=== PATIENT | male | born 1960 | race Caucasian/White ===

== ENCOUNTER 2017-04-20 14:09 | Emergency (ER) | payer BC ==
[2017-04-20] MEDS ORDERED: Ondansetron 4 MG/2 ML SDV IVPUSH ONE (14:14)
[2017-04-20] MEDS ORDERED: Sodium Chloride 0.9% 1,000 ML IV ONE ×2 (14:14→15:32)
[2017-04-20] MEDS ORDERED: Ketorolac 30 MG/ML SDV IVPUSH ONE (14:14)
[2017-04-20 16:10] LABS: CHLORIDE,CL 106 mmol/L (98-110); SODIUM,NA 138 mmol/L (136-146)
--- NOTE | 2017-04-20 16:43 | EDM.PDOC ---
ED HPI GENERAL MEDICAL PROBLEM - General Chief Complaint: Abdominal Pain Stated Complaint: ABDOMINAL PAIN Time Seen by Provider: 04/20/17 16:40 Source of Information: Reports: Patient - History of Present Illness INITIAL COMMENTS - FREE TEXT/NARRATIVE: HISTORY AND PHYSICAL: History of present illness: [Patient presents with a history of travel to [place] over the last couple of weeks, since his return he has had loose watery stools for weeks are improving he did not have to get up during the night for a bowel movement, here during an extended stay in the emergency room he is unable to provide a stool, he notes there may have been some blood in his stool previously. Due to not being able to provide stool and essentially normal lab on CBC CMP he desires to go home I did provide collection equipment I'll be happy to run his stool sample if he can provide one and redirected Nominal pain no fever nausea vomiting chills sweats no chest pain shortness breath headache dizziness or palpitation or urine symptoms ] Review of systems: As per history of present illness and below otherwise all systems reviewed and negative. Past medical history: As per history of present illness and as reviewed below otherwise noncontributory. Surgical history: As per history of present illness and as reviewed below otherwise noncontributory. Social history: No reported history of drug or alcohol abuse. Family history: As per history of present illness and as reviewed below otherwise noncontributory. Physical exam: HEENT: Atraumatic, normocephalic, pupils reactive, negative for conjunctival pallor or scleral icterus, mucous membranes moist, throat clear, neck supple, nontender, trachea midline. Lungs: Clear to auscultation, breath sounds equal bilaterally, chest nontender. Heart: S1S2, regular, negative for clicks, rubs, or JVD. Abdomen: Soft, nondistended, nontender. Negative for masses or hepatosplenomegaly. Negative for costovertebral tenderness. Pelvis: Stable nontender. Genitourinary: Deferred. Rectal: Deferred by patient Extremities: Atraumatic, negative for cords or calf pain. Neurovascular unremarkable. Neuro: Awake, alert, oriented. Cranial nerves II through XII unremarkable. Cerebellum unremarkable. Motor and sensory unremarkable throughout. Exam nonfocal. Diagnostics: []CBC CMP stool culture (as it and guaiac is ordered Therapeutics: []Provide stool collection equipment Return if symptoms persist or worsen Follow-up with primary care in 2 weeks sooner as needed Impression: []Gastroenteritis/traveler's diarrhea Definitive disposition and diagnosis as appropriate pending reevaluation and review of above. Lower Abdominal Pain Score (Numeric/FACES): 7 - Related Data Allergies Allergy/AdvReac Type Severity Reaction Status Date / Time No Known Allergies Allergy Verified 04/20/17 15:14 Home Meds: Home Meds . [No Known Home Meds] 04/20/17 [History] Past Medical History - Past Surgical History HEENT Surgical History: Reports: Other (See Below) Other HEENT Surgeries/Procedures: Growth removed from inside right nares on Tues. Social & Family History - Family History Family Medical History: Noncontributory - Tobacco Use Smoking Status *Q: Current Every Day Smoker Years of Tobacco use: 15 Packs/Tins Daily: 1 Used Tobacco, but Quit: No Second Hand Smoke Exposure: Yes - Caffeine Use Caffeine Use: Reports: Tea - Recreational Drug Use Recreational Drug Use: No ED ROS GENERAL - Review of Systems Review Of Systems: ROS reveals no pertinent complaints other than HPI. ED EXAM, GENERAL - Physical Exam Exam: See Below Course - Vital Signs Last Recorded V/S: Last Vital Signs Temp 96.3 F 04/20/17 14:59 Pulse 93 04/20/17 14:59 Resp 20 04/20/17 14:59 BP 121/90 04/20/17 14:59 Pulse Ox 97 04/20/17 14:59 - Orders/Labs/Meds Orders: Active Orders 24 hr Category Date Time Status EKG Documentation Completion [RC] STAT Care 04/20/17 14:43 Inactive Abdomen Pelvis w wo Cont [CT] Stat Exams 04/20/17 14:14 Stop Req CULTURE STOOL + CAMPY+SHIGATOX [RM] Stat Lab 04/20/17 14:47 Uncollected Guaiac [OCCULT BLOOD DIAGNOSTIC] [OP] Stat Lab 04/20/17 14:47 Uncollected OVA & PARASITES BY IMMUNOASSAY [MREF] Stat Lab 04/20/17 14:47 Uncollected UA W/MICROSCOPIC [URIN] Stat Lab 04/20/17 14:13 Uncollected Labs: Laboratory Tests 04/20/17 04/20/17 Range/Units 15:28 15:28 WBC 8.55 (4.0-11.0) K/uL RBC 4.11 L (4.50-5.90) M/uL Hgb 13.5 (13.0-17.0) g/dL Hct 40.0 (38.0-50.0) % MCV 97.3 (80.0-98.0) fL MCH 32.8 H (27.0-32.0) pg MCHC 33.8 (31.0-37.0) g/dL RDW Std Deviation 52.5 (28.0-62.0) fl RDW Coeff of Alison 15 (11.0-15.0) % Plt Count 207 (150-400) K/uL MPV 10.30 (7.40-12.00) fL Neut % (Auto) 61.9 (48.0-80.0) % Lymph % (Auto) 27.5 (16.0-40.0) % Wheeler % (Auto) 8.8 (0.0-15.0) % Eos % (Auto) 1.4 (0.0-7.0) % Baso % (Auto) 0.4 (0.0-1.5) % Neut # (Auto) 5.3 (1.4-5.7) K/uL Lymph # (Auto) 2.4 (0.6-2.4) K/uL Wheeler # (Auto) 0.8 (0.0-0.8) K/uL Eos # (Auto) 0.1 (0.0-0.7) K/uL Baso # (Auto) 0.0 (0.0-0.1) K/uL Nucleated RBC % 0.0 /100WBC Nucleated RBCs # 0 K/uL Sodium 138 (136-146) mmol/L Potassium 3.7 (3.5-5.1) mmol/L Chloride 106 (98-110) mmol/L Carbon Dioxide 23 (21-31) mmol/L BUN 11 (6.0-23.0) mg/dL Creatinine 1.0 (0.6-1.5) mg/dL Est Cr Clr Drug Dosing 81.50 mL/min Estimated GFR (MDRD) > 60.0 ml/min Glucose 111 H (60-110) mg/dL Calcium 8.4 L (8.8-10.8) mg/dL Total Bilirubin 0.7 (0.1-1.5) mg/dL AST 16 (5-40) IU/L ALT 19 (8-54) IU/L Alkaline Phosphatase 51 (40-150) Troponin I < 0.10 (0.0-0.29) NG/ML Total Protein 7.2 (6.0-8.0) g/dL Albumin 3.5 (3.5-5.0) g/dL Globulin 3.7 H (2.0-3.5) g/dL Albumin/Globulin Ratio 1.0 L (1.3-2.8) Amylase 40 (10-90) U/L Lipase < 9 (7-80) U/L Meds: Medications Discontinued Medications Generic Name Dose Route Start Last Admin Trade Name Kalli PRN Reason Stop Dose Admin Sodium Chloride 1,000 mls @ 999 mls/hr 04/20/17 14:14 04/20/17 15:32 Normal Saline IV 04/20/17 15:14 Not Given STAT ONE Sodium Chloride 1,000 mls @ 999 mls/hr 04/20/17 15:32 04/20/17 15:32 Normal Saline IV 04/20/17 16:32 999 mls/hr STAT ONE Administration Ketorolac Tromethamine 30 mg 04/20/17 14:14 04/20/17 15:32 Toradol IVPUSH 04/20/17 14:15 Not Given ONETIME ONE Ondansetron HCl 8 mg 04/20/17 14:14 04/20/17 15:32 Zofran IVPUSH 04/20/17 14:15 Not Given ONETIME ONE Departure - Departure Time of Disposition: 16:42 Disposition: Home, Self-Care 01 Condition: Good Clinical Impression: Gastroenteritis - Discharge Information Referrals: PCP,None [Primary Care Provider] - Additional Instructions: Pepto-Bismol with each loose stool Return if symptoms persist or worsen Stool sample equipment and collection equipment provided if he returns to lamp B appendectomy to run tests on it for ova parasites culture of bacterial pathogens and blood testing I also recommend colonoscopy as he has not had one Follow-up with primary care in 2 weeks sooner as needed to discuss above [facility] - Primary Care [address] [place] [id number] The following information is given to patients seen in the emergency department who are being discharged to home. This information is to outline your options for follow-up care. We provide all patients seen in our emergency department with a follow-up referral. The need for follow-up, as well as the timing and circumstances, are variable depending upon the specifics of your emergency department visit. If you don't have a primary care physician on staff, we will provide you with a referral. We always advise you to contact your personal physician following an emergency department visit to inform them of the circumstance of the visit and for follow-up with them and/or the need for any referrals to a consulting specialist. The emergency department will also refer you to a specialist when appropriate. This referral assures that you have the opportunity for follow-up care with a specialist. All of these measure are taken in an effort to provide you with optimal care, which includes your follow-up. Under all circumstances we always encourage you to contact your private physician who remains a resource for coordinating your care. When calling for follow-up care, please make the office aware that this follow-up is from your recent emergency room visit. If for any reason you are refused follow-up, please contact the [facility] emergency department at and asked to speak to the emergency department charge nurse. - My Orders Last 24 Hours: My Active Orders 04/20/17 14:13 UA W/MICROSCOPIC [URIN] Stat 04/20/17 14:14 Abdomen Pelvis w wo Cont [CT] Stat 04/20/17 14:43 EKG Documentation Completion [RC] STAT 04/20/17 14:47 CULTURE STOOL + CAMPY+SHIGATOX [RM] Stat Guaiac [OCCULT BLOOD DIAGNOSTIC] [OP] Stat OVA & PARASITES BY IMMUNOASSAY [MREF] Stat - Assessment/Plan Last 24 Hours: My Active Orders 04/20/17 14:13 UA W/MICROSCOPIC [URIN] Stat 04/20/17 14:14 Abdomen Pelvis w wo Cont [CT] Stat 04/20/17 14:43 EKG Documentation Completion [RC] STAT 04/20/17 14:47 CULTURE STOOL + CAMPY+SHIGATOX [RM] Stat Guaiac [OCCULT BLOOD DIAGNOSTIC] [OP] Stat OVA & PARASITES BY IMMUNOASSAY [MREF] Stat
== END 2017-04-20 16:55 | disposition home or self-care (01) ==
LOC: MW.ED 14:09
DX: K52.9 Noninfective gastroenteritis and colitis, unspecified (principal); F17.210 Nicotine dependence, cigarettes, uncomplicated
CPT/HCPCS: 36415; 80053; 82150; 83690; 84484; 85025; 96360; 99284; J7040

== ENCOUNTER 2020-11-25 17:56 | Emergency (ER) | payer BC ==
--- NOTE | 2020-11-25 18:03 | EDM.PDOC ---
<Adrian Lagunas - Last Filed: 11/25/20 18:51> ED HPI GENERAL MEDICAL PROBLEM - General Chief Complaint: Lower Extremity Injury/Pain Stated Complaint: KNEE HURTING Time Seen by Provider: 11/25/20 17:57 Source of Information: Reports: Patient History Limitations: Reports: No Limitations - History of Present Illness INITIAL COMMENTS - FREE TEXT/NARRATIVE: 60-year-old male presents for right knee pain. Patient notes that he was golfing last week and is not typically so active. He noted pain in bilateral knees after his golfing expedition. Today while getting something out of his vehicle he twisted on his right knee and felt a popping sensation and has ever since had pain in the lateral aspect of his right knee. The pain is worse with walking. He does still have full range of motion of the knee however. No other injuries reported. Right Knee Pain Score (Numeric/FACES): 9 - Related Data Allergies Allergy/AdvReac Type Severity Reaction Status Date / Time No Known Allergies Allergy Verified 11/25/20 18:09 Home Meds: Home Meds cycloSPORINE [Restasis Multidose] 1 drop EYEBOTH ASDIRECTED 11/25/20 [History] Past Medical History - Past Surgical History HEENT Surgical History: Reports: Other (See Below) Other HEENT Surgeries/Procedures: Growth removed from inside right nares on . Social & Family History - Family History Family Medical History: No Pertinent Family History - Caffeine Use Caffeine Use: Reports: Tea Review of Systems - Review of Systems Review Of Systems: Comprehensive ROS is negative, except as noted in HPI. ED EXAM, GENERAL - Physical Exam Exam: See Below Exam Limited By: No Limitations General Appearance: Alert, WD/WN, No Apparent Distress Ears: Hearing Grossly Normal Throat/Mouth: Normal Voice, No Airway Compromise Head: Atraumatic, Normocephalic Neck: Normal Inspection Respiratory/Chest: No Respiratory Distress, No Accessory Muscle Use Cardiovascular: Normal Peripheral Pulses Extremities: Other (Exam of the knee is limited by patient body habitus, no palpable deformities, no overt swelling, normal passive range of motion with subjective pain to right lateral knee, mild tenderness to palpation of right lateral knee) Neurological: Alert Psychiatric: Normal Affect, Normal Mood Skin Exam: Warm, Dry, Intact, Normal Color Course - Re-Assessments/Exams Free Text/Narrative Re-Assessment/Exam: 11/25/20 18:15 We will get x-ray imaging of the knee. If no gross abnormalities anticipate discharge with analgesia and follow-up with ortho for further evaluation and potential MRI to r/o internal knee injury. 11/25/20 18:51 Patient care transition to night team ER physician to follow-up reassessment and x-ray imaging result. Departure - Departure Disposition: Home, Self-Care 01 Clinical Impression: Knee sprain - Discharge Information Instructions: Knee Sprain, Adult, [id number] Referrals: PCP,None [Primary Care Provider] - Forms: ED Department Discharge Additional Instructions: The following information is given to patients seen in the emergency department who are being discharged to home. This information is to outline your options for follow-up care. We provide all patients seen in our emergency department with a follow-up referral. The need for follow-up, as well as the timing and circumstances, are variable depending upon the specifics of your emergency department visit. If you don't have a primary care physician on staff, we will provide you with a referral. We always advise you to contact your personal physician following an emergency department visit to inform them of the circumstance of the visit and for follow-up with them and/or the need for any referrals to a consulting specialist. The emergency department will also refer you to a specialist when appropriate. This referral assures that you have the opportunity for follow-up care with a specialist. All of these measure are taken in an effort to provide you with optimal care, which includes your follow-up. Under all circumstances we always encourage you to contact your private physician who remains a resource for coordinating your care. When calling for follow-up care, please make the office aware that this follow-up is from your recent emergency room visit. If for any reason you are refused follow-up, please contact the [facility] Emergency Department at and asked to speak to the emergency department charge nurse. Please follow up with your primary care physician. If you do not have a primary care physician, see below: [facility] [address] [place] [id number] [facility] [address] [place] [address] [facility] [address], [address] [place] [address] You were seen today for pain to your knee at the right a pop. There is some soft tissue swelling which could be related to some possible tearing the knee. Recommend you follow-up with orthopedics for a possible MRI of the knee we can also see your primary care physician. We will send you home with an Дмитрий wrap as well. Please take Motrin Tylenol for pain as needed. <Ryan Barker - Last Filed: 11/25/20 19:35> Course - Vital Signs Last Recorded V/S: Last Vital Signs Temp 97.3 F 11/25/20 18:07 Pulse 96 11/25/20 18:07 Resp 17 11/25/20 18:07 BP 150/71 H 11/25/20 18:07 Pulse Ox 93 L 11/25/20 18:07 - Orders/Labs/Meds Orders: Active Orders 24 hr Category Date Time Status DME for Discharge [COMM] Stat Oth 11/25/20 19:34 Ordered Meds: Medications Discontinued Medications Generic Name Dose Route Start Last Admin Trade Name Freq PRN Reason Stop Dose Admin Cyclobenzaprine HCl 10 mg 11/25/20 18:13 11/25/20 18:21 Cyclobenzaprine 10 Mg Tab PO 11/25/20 18:14 10 mg ONETIME ONE Administration Ketorolac Tromethamine 30 mg 11/25/20 18:13 11/25/20 18:21 Ketorolac 30 Mg/Ml Sdv IM 11/25/20 18:14 30 mg ONETIME ONE Administration - Re-Assessments/Exams Free Text/Narrative Re-Assessment/Exam: 11/25/20 19:34 What you are ordering дмитрий wrap and crutches Why you are ordering it Pain reduction and assistance ambulation How it will benefit patient With ambulation and pain reduction How long is patient to use it 7 to 10 days Departure - Departure Time of Disposition: 19:24 Condition: Good - Discharge Information *PRESCRIPTION DRUG MONITORING PROGRAM REVIEWED*: Not Applicable *COPY OF PRESCRIPTION DRUG MONITORING REPORT IN PATIENT MATEO: Not Applicable Sepsis Event Note (ED) - Focused Exam Vital Signs: Vital Signs Temp Pulse Resp BP Pulse Ox 11/25/20 18:07 97.3 F 96 17 150/71 H 93 L - My Orders Last 24 Hours: My Active Orders 11/25/20 19:34 DME for Discharge [COMM] Stat - Assessment/Plan Last 24 Hours: My Active Orders 11/25/20 19:34 DME for Discharge [COMM] Stat
[2020-11-25] MEDS ORDERED: Cyclobenzaprine 10 MG Tab PO ONE (18:13)
[2020-11-25] MEDS ORDERED: Ketorolac 30 MG/ML SDV IM ONE (18:13)
--- NOTE | 2020-11-25 19:23 | CR ---
Indication: Popping injury Comparison: None available. Technique: Standing AP, lateral, and sunrise views right knee were obtained Findings: There is no displaced fracture or dislocation. The joint spaces are grossly preserved. There is moderate superficial soft tissue swelling. Impression: Moderate superficial soft tissue swelling of the lower extremity without evidence of acute osseous abnormality. Dictated by Geronimo Masterson MD @ 11/25/2020 7:21:[address] Geronimo Masterson @ Nov 25 2020 7:21PM
== END 2020-11-25 19:55 | disposition home or self-care (01) ==
LOC: MW.ED 17:56
DX: S83.91XA Sprain of unspecified site of right knee, initial encounter (principal); X50.1XXA Overexertion from prolonged static or awkward postures, initial encounter; Y93.53 Activity, golf
CPT/HCPCS: 73562; 96372; 99283; A9270; J1885